=== PATIENT | female | born 1980 | race Caucasian/White ===

== ENCOUNTER 2019-04-05 12:12 | Emergency (ER) | payer OTHER, SELFPAY ==
[2019-04-05 12:36] VITALS: BP 135/65; PULSE 110; RESP 20; TEMP 36.8; O2SAT 99; BMI 26.6
[2019-04-05 12:41] VITALS: BP 135/65; PULSE 108; RESP 17; TEMP 36.8; O2SAT 98
[2019-04-05 13:00] VITALS: BP 118/98; PULSE 101; PULSE 107; RESP 16; RESP 18; O2SAT 100; O2SAT 99
--- NOTE | 2019-04-05 13:01 | PC.NURSE ---
Attempt x1 for IV, unsuccessful. Warm blankets to arms
--- NOTE | 2019-04-05 13:23 | ED.GIBLEED ---
HPI - GI Bleed <Francy Forrest, HOUSEKEEPER/LAUNDRY ASSISTANT-BC - Last Filed: 04/05/19 16:28> General Chief complaint: GI Bleed Stated complaint: blood in stool, x2+ days,abd pain Time Seen by Provider: 04/05/19 12:58 Source: patient and family Mode of arrival: ambulatory Limitations: no limitations History of Present Illness HPI Narrative: The patient is a 38 year female current smoker who presents with a chief complaint of bright red blood per rectum as well as some abdominal pain. She states that this is a recurrent issue for her. She states in 2014 she was in this emergency department and was found to have colitis. She was placed on medications, which she states helps it. She did follow up with Gastroenterology as well as her primary care provider several times. She states she had a colonoscopy. She states she was scoped multiple times. She found gastroenterology not very helpful. She states that this current episode of abdominal pain with bright red blood per rectum has been going on for 5 days. She denies any black tarry stools. She denies any chest pain shortness of breath fever nausea vomiting or diarrhea. She states her belly pain is on her left side. She denies any dysuria urgency or frequency. She denies any flank pain. She states she has not seen Gastroenterology in 2 years at least. She has not let her primary care provider know about this episode. Related Data Home Medications Medication Instructions Recorded Confirmed acetaminophen 500 mg tablet 1,000 mg PO Q6H PRN 04/04/18 04/06/19 amitriptyline 50 - 75 mg PO BEDTIME PRN 04/05/19 04/06/19 loperamide-simethicone [Imodium 1 tab PO PRN PRN 04/05/19 04/06/19 Multi-Symptom Relief] ranitidine HCl 150 mg PO DAILY PRN 04/05/19 04/06/19 sumatriptan succinate 50 mg PO PRN PRN 04/05/19 04/06/19 Previous Rx's Medication Instructions Recorded ciprofloxacin HCl 500 mg PO BID #14 tab 04/05/19 metronidazole 500 mg PO TID #30 tab 04/05/19 prednisone 50 mg PO DAILY #5 tab 04/05/19 norgestimate 0.18 mg/0.215 mg/0.25 1 tab PO DAILY #84 tab 04/06/19 mg-ethinyl estradiol 25 mcg tablet Allergies Allergy/AdvReac Type Severity Reaction Status Date / Time amoxicillin [AMOXICILLIN] Allergy Mild RASH, HIVES Verified 04/06/19 11:28 Penicillins [PENICILLINS] Allergy Mild RASH, HIVES Verified 04/06/19 11:28 venlafaxine [VENLAFAXINE] AdvReac Severe PALPITATION Verified 04/06/19 11:28 S sertraline [SERTRALINE] AdvReac Intermediate HEART Verified 04/06/19 11:28 PALPITATIONS trazodone [TRAZODONE] AdvReac Intermediate CHEST HEAVY Verified 04/06/19 11:28 Review of Systems <NICHOLE Messina - Last Filed: 04/05/19 16:28> Review of Systems GENERAL: Denies chills, fatigue, malaise, fever, sweats. HEENT: Denies sinus pain, ear pain, sore throat, difficulty swallowing, dizziness. RESPIRATORY: Denies dyspnea, cough, wheezing, hemoptysis, sputum. CARDIOVASCULAR: Denies chest pain, palpitations, orthopnea, edema, GASTROINTESTINAL: See HPI : Denies dysuria, frequency, incontinence, hematuria, urinary retention. MUSCULOSKELETAL: denies weakness, joint pain, or bony pain SKIN: Denies rash, skin lesions, or other NEUROLOGIC: Denies weakness, headache, numbness, change in speech, confusion, seizures, incoordination. PSYCHIATRIC: No concerning psychosocial issues. 12 point review of systems is negative except for those stated above PFSH <NICHOLE Messina - Last Filed: 04/05/19 16:28> Medical History Abnormal Pap smear of cervix (Chronic ~1995) Anxiety (Chronic ~2001) Depression (Chronic ~2001) Generalized headaches (Chronic Unknown) HPV (human papilloma virus) infection (Chronic 2011) Chickenpox (Resolved ~1981) Diverticula of colon (Resolved 07/2017) Nephrolithiasis (Resolved Unknown) Surgical History History of lithotripsy Family History Father Age: 61 Hyperlipidemia Hypertension Grandmother Diabetes mellitus Mother Age: 60 Controlled type 2 diabetes mellitus without complication, unspecified usp insulin use status Diabetes mellitus Hypertension Grandfather Stroke Grandmother Diabetes mellitus Heart disease Stroke Social History Smoking Status: Current every day smoker Family History Father Age: 61 Hyperlipidemia Hypertension Grandmother Diabetes mellitus Mother Age: 60 Controlled type 2 diabetes mellitus without complication, unspecified usp insulin use status Diabetes mellitus Hypertension Grandfather Stroke Grandmother Diabetes mellitus Heart disease Stroke Social History Smoking Status: Current every day smoker Exam <NICHOLE Messina - Last Filed: 04/05/19 16:28> Narrative Exam Narrative: GENERAL: This is a well-nourished, well-developed patient, lying on stretcher in no acute distress HEAD: Atraumatic. Normocephalic. No temporal or scalp tenderness. EYES: Pupils equal round and reactive. Extraocular motions intact. No scleral icterus. No injection or drainage. CARDIOVASCULAR: Regular rate and rhythm without murmurs, gallops, or rubs. RESPIRATORY: Clear to auscultation. Breath sounds equal bilaterally. No wheezes, rales, or rhonchi. No cough. No increased respiratory effort. No accessory muscle use. GASTROINTESTINAL: Abdomen soft, nondistended. No hepato-splenomegaly, or palpable masses. Active bowel sounds all 4 quadrants. Generalized pain to palpation left upper and lower abdomen. No guarding. Negative Garcia sign. EXTREMITIES: No clubbing, cyanosis, or edema. No joint tenderness, effusion, or edema noted. BACK: Nontender without deformity or crepitance. No flank tenderness. NEURO: AOx3. SKIN: No rash or erythema. The patient refused rectal exam. Initial Vital Signs Initial Vital Signs: Vital Signs Temperature 98.2 F 04/05/19 12:36 Pulse Rate 110 H 04/05/19 12:36 Respiratory Rate 20 04/05/19 12:36 Blood Pressure 135/65 04/05/19 12:36 Pulse Oximetry 99 04/05/19 12:36 Const General: cooperative and well developed Nutritional Appearance: well nourished Orientation: alert, awake, oriented x3 and not confused <Vale Osuna MD - Last Filed: 04/11/19 07:24> Initial Vital Signs Initial Vital Signs: Vital Signs Temperature 98.2 F 04/05/19 12:36 Pulse Rate 110 H 04/05/19 12:36 Respiratory Rate 20 04/05/19 12:36 Blood Pressure 135/65 04/05/19 12:36 Pulse Oximetry 99 04/05/19 12:36 Course <ROXANNE Messina - Last Filed: 04/05/19 16:28> Orders Ordered: Discontinued Medications Diphenhydramine HCl (Benadryl) 25 mg IV NOW ONE Stop: 04/05/19 13:52 Last Admin: 04/05/19 14:10 Dose: 25 mg Sodium Chloride (Normal Saline 0.9%) 1,000 mls @ 1,000 mls/hr IV BOLUS ONE Stop: 04/05/19 15:01 Last Infusion: 04/05/19 15:12 Dose: 0 mls/hr Admin: 04/05/19 14:10 Dose: 1,000 mls/hr Methylprednisolone (Solu-Medrol 125 Mg Vial) 125 mg IV NOW ONE Stop: 04/05/19 13:52 Last Admin: 04/05/19 14:10 Dose: 125 mg Vital Signs - 8 hr 04/05/19 12:36 04/05/19 12:41 04/05/19 13:00 Temperature 98.2 F 98.2 F Pulse Rate 110 H 108 H 101 H Respiratory Rate 20 17 16 Blood Pressure 135/65 Blood Pressure [Left Arm] 135/65 118/98 H Pulse Oximetry 99 98 99 04/05/19 14:00 04/05/19 15:00 04/05/19 15:56 Temperature Pulse Rate 99 H 89 89 Respiratory Rate 16 16 20 Blood Pressure 98/56 L Blood Pressure [Left Arm] 121/65 118/60 Pulse Oximetry 94 99 98 <Vale Osuna MD - Last Filed: 04/11/19 07:24> Orders Ordered: Discontinued Medications Diphenhydramine HCl (Benadryl) 25 mg IV NOW ONE Stop: 04/05/19 13:52 Last Admin: 04/05/19 14:10 Dose: 25 mg Sodium Chloride (Normal Saline 0.9%) 1,000 mls @ 1,000 mls/hr IV BOLUS ONE Stop: 04/05/19 15:01 Last Infusion: 04/05/19 15:12 Dose: 0 mls/hr Admin: 04/05/19 14:10 Dose: 1,000 mls/hr Methylprednisolone (Solu-Medrol 125 Mg Vial) 125 mg IV NOW ONE Stop: 04/05/19 13:52 Last Admin: 04/05/19 14:10 Dose: 125 mg Vital Signs - 8 hr 04/05/19 12:36 04/05/19 12:41 04/05/19 13:00 Temperature 98.2 F 98.2 F Pulse Rate 110 H 108 H 101 H Respiratory Rate 20 17 16 Blood Pressure 135/65 Blood Pressure [Left Arm] 135/65 118/98 H Pulse Oximetry 99 98 99 04/05/19 14:00 04/05/19 15:00 04/05/19 15:56 Temperature Pulse Rate 99 H 89 89 Respiratory Rate 16 16 20 Blood Pressure 98/56 L Blood Pressure [Left Arm] 121/65 118/60 Pulse Oximetry 94 99 98 MDM - GI Bleed <Francy Forrest, HOUSEKEEPER/LAUNDRY ASSISTANT- - Last Filed: 04/05/19 16:28> Lab Data Result diagrams: 04/05/19 13:30 04/05/19 13:30 Lab Results 04/05/19 04/05/19 04/05/19 Range/Units 13:30 13:30 14:00 WBC 16.6 H (4.5-11.0) X10^3/uL RBC 4.43 (4.0-5.2) X10^6/uL Hgb 12.3 (12.0-16.0) g/dL Hct 36.8 (36-46) % MCV 83.0 (80-100) fL MCH 27.7 (26-34) PG MCHC 33.3 (30-36) % RDW 14.1 (11.6-14.8) % Plt Count 425 H (150-400) X10^3/uL Neut % (Auto) 79.2 H (50-75) % Lymph % (Auto) 14.8 L (25-40) % [place] % (Auto) 4.7 (3-14) % Eos % (Auto) 0.6 L (2-4) % Baso % (Auto) 0.7 (0-2) % Neut # (Auto) 75991 H (0606-0884) /uL Lymph # (Auto) 2500 (7839-7001) /uL [place] # (Auto) 800 (0-900) /uL Eos # (Auto) 100 (0-450) /uL Baso # (Auto) 100 (0-100) /uL PT 10.6 (10.1-12.7) SECONDS INR 0.9 (0.9-1.3) APTT 27 (26.4-36.2) SECONDS Sodium 139 (137-145) mmol/L Potassium 4.1 (3.4-5.1) mmol/L Chloride 109 H (98-107) mmol/L Carbon Dioxide 20 L (22-32) mmol/L BUN 6 L (7-17) mg/dL Creatinine 0.50 L (0.52-1.04) mg/dL Estimated GFR > 60.0 (>60) mL/min BUN/Creatinine Ratio 12.0 (6-22) Glucose 87 (70-100) mg/dL Calcium 8.7 (8.4-10.2) mg/dL Total Bilirubin 0.3 (0.2-1.3) mg/dL AST 22 (14-36) IU/L ALT 15 (9-52) IU/L Alkaline Phosphatase 120 (38-126) U/L Total Protein 7.4 (6.3-8.2) g/dL Albumin 3.9 (3.5-5.0) g/dL Globulin 3.5 (1.7-4.1) g/dL Albumin/Globulin Ratio 1.1 (1.0-2.8) Lipase 42 (23-300) U/L Blood Type Antibody Screen 04/05/19 Range/Units 14:00 WBC (4.5-11.0) X10^3/uL RBC (4.0-5.2) X10^6/uL Hgb (12.0-16.0) g/dL Hct (36-46) % MCV (80-100) fL MCH (26-34) PG MCHC (30-36) % RDW (11.6-14.8) % Plt Count (150-400) X10^3/uL Neut % (Auto) (50-75) % Lymph % (Auto) (25-40) % [place] % (Auto) (3-14) % Eos % (Auto) (2-4) % Baso % (Auto) (0-2) % Neut # (Auto) (5726-5346) /uL Lymph # (Auto) (9086-5623) /uL [place] # (Auto) (0-900) /uL Eos # (Auto) (0-450) /uL Baso # (Auto) (0-100) /uL PT (10.1-12.7) SECONDS INR (0.9-1.3) APTT (26.4-36.2) SECONDS Sodium (137-145) mmol/L Potassium (3.4-5.1) mmol/L Chloride (98-107) mmol/L Carbon Dioxide (22-32) mmol/L BUN (7-17) mg/dL Creatinine (0.52-1.04) mg/dL Estimated GFR (>60) mL/min BUN/Creatinine Ratio (6-22) Glucose (70-100) mg/dL Calcium (8.4-10.2) mg/dL Total Bilirubin (0.2-1.3) mg/dL AST (14-36) IU/L ALT (9-52) IU/L Alkaline Phosphatase (38-126) U/L Total Protein (6.3-8.2) g/dL Albumin (3.5-5.0) g/dL Globulin (1.7-4.1) g/dL Albumin/Globulin Ratio (1.0-2.8) Lipase (23-300) U/L Blood Type O Positive Antibody Screen Negative Point of Care Testing Test Results Negative Urine Dip Bedside Urine Glucose Negative Bedside Urine Bilirubin - Negative Bedside Urine Ketone - Negative Urine Specific [place] 1.030 Bedside Urine Occult Blood + Bedside Urine pH 6.0 Bedside Urine Protein +/- 15 Bedside Urine Urobilinogen - Negative Bedside Urine Nitrite - Negative Bedside Urine Leukocytes ++ [address] scan - abdomen: Radiologist's impression: Dasia Delatorre 38 F [address] [address] [address] Scan Report Signed Patient: NandiniDasia KMR#: [id number] : 1980Acct:[id number] Age/Sex: 38 / FDate of Service: 04/05/19 Loc: ED Accession Number: [id number] Procedure: CT abdomen pelvis w con Ordering Provider: Francy Forrest PROCEDURE: CT ABDOMEN PELVIS W CON INDICATIONS: abd pain, rectal bleeding, elevated wbc TECHNIQUE: After the administration of intravenous contrast, 5 mm thick sections acquired from the diaphragm to the symphysis. 5 mm coronal and sagittal reformats were acquired. For radiation dose reduction, the following was used: automated exposure control, adjustment of mA and/or kV according to patient size. COMPARISON: [facility], CT, ABDOMEN/PELVIS WITH CONTRAST, 07/31/2015, 0:13. FINDINGS: Image quality: Excellent. ABDOMEN: Lung bases: No acute consolidation. Scattered subsegmental atelectasis and/or scarring. Heart size is normal. Solid organs: Focal enhancement within the central liver image 19 series 2 measuring 1.8 x 2.6 cm unchanged since 07/31/15 presumably hemangioma versus focal fatty sparing. Gallbladder contains multiple gallstones. No definite gallbladder wall thickening or pericholecystic inflammatory changes. Biliary system is non dilated. Pancreas enhances normally. 1 cm hypodense lesion in the spleen on image 10 is indeterminate although new since the prior study. No adrenal nodules. Kidneys demonstrate normal size and enhancement, without hydronephrosis. Peritoneum and bowel: There is suggestion of long segment diffuse transverse and descending colonic mural thickening. No free fluid or air. Appendix is not clearly identified however no suspicious pericecal inflammatory changes are identified Rectum is grossly unremarkable There are numerous colonic diverticula present although no definite focal implant diverticulitis noted. Nodes and vessels: No retroperitoneal or mesenteric adenopathy by size criteria. Aorta and inferior vena cava are normal in size. Miscellaneous: No ventral hernias. PELVIS: Genitourinary: The bladder is partially collapsed otherwise unremarkable Miscellaneous: No inguinal hernias or adenopathy. Bones: No suspicious bony lesions. No vertebral body compression fractures. IMPRESSION: Mild diffuse colonic wall thickening primarily involving the transverse and descending colon suggesting low grade infectious/inflammatory pancolitis. Please correlate with clinical and laboratory data. Cholelithiasis. However, no other CT evidence of acute cholecystitis. Please correlate clinically and with LFTs. Colonic diverticulosis. No definite focal inflamed diverticulitis identified. Additional chronic and incidental findings as above. Dictated by: Low Robison M.D. on 04/05/2019 at 14:51 Approved by: Low Robison M.D. on 04/05/2019 at 14:59 [facility] Narrative Medical decision making narrative: The patient is a 38-year-old female who presents with complaints of diffuse abdominal tenderness and bright red blood per rectum. Given her complaint combined with her elevated WBC I obtained a CT scan. Her CT scan indicates colitis. Given that her last episode improved with Cipro and Flagyl, I placed her on this again. I also gave her a burst of prednisone. The patient declined a rectal exam in the emergency department after she was unable to produce stool. I encouraged her to follow up with primary care provider, and stated she might need to follow up with Gastroenterology. I discussed at length return precautions including dizziness, lightheadedness, severe hemorrhage or any acute concerns. Patient states understanding. We did discuss the incidental finding of a possible liver hemangioma on her pelvis CT. I encouraged her to follow up with primary care provider regarding this. I did discuss at length the black box warning associated with Cipro regarding tendinopathy. Also discussed not drinking on Flagyl. Encouraged simple diet. Patient was hemodynamically stable and afebrile throughout her stay in the emergency department. Discussed at length follow-up care as well as return precautions. Patient stated understanding of all the above and was able to ambulate outside the department for discharge. <Vale Osuna MD - Last Filed: 04/11/19 07:24> Lab Data Lab Results 04/05/19 04/05/19 04/05/19 Range/Units 13:30 13:30 14:00 WBC 16.6 H (4.5-11.0) X10^3/uL RBC 4.43 (4.0-5.2) X10^6/uL Hgb 12.3 (12.0-16.0) g/dL Hct 36.8 (36-46) % MCV 83.0 (80-100) fL MCH 27.7 (26-34) PG MCHC 33.3 (30-36) % RDW 14.1 (11.6-14.8) % Plt Count 425 H (150-400) X10^3/uL Neut % (Auto) 79.2 H (50-75) % Lymph % (Auto) 14.8 L (25-40) % [place] % (Auto) 4.7 (3-14) % Eos % (Auto) 0.6 L (2-4) % Baso % (Auto) 0.7 (0-2) % Neut # (Auto) 71915 H (0739-7707) /uL Lymph # (Auto) 2500 (2430-4005) /uL [place] # (Auto) 800 (0-900) /uL Eos # (Auto) 100 (0-450) /uL Baso # (Auto) 100 (0-100) /uL PT 10.6 (10.1-12.7) SECONDS INR 0.9 (0.9-1.3) APTT 27 (26.4-36.2) SECONDS Sodium 139 (137-145) mmol/L Potassium 4.1 (3.4-5.1) mmol/L Chloride 109 H (98-107) mmol/L Carbon Dioxide 20 L (22-32) mmol/L BUN 6 L (7-17) mg/dL Creatinine 0.50 L (0.52-1.04) mg/dL Estimated GFR > 60.0 (>60) mL/min BUN/Creatinine Ratio 12.0 (6-22) Glucose 87 (70-100) mg/dL Calcium 8.7 (8.4-10.2) mg/dL Total Bilirubin 0.3 (0.2-1.3) mg/dL AST 22 (14-36) IU/L ALT 15 (9-52) IU/L Alkaline Phosphatase 120 (38-126) U/L Total Protein 7.4 (6.3-8.2) g/dL Albumin 3.9 (3.5-5.0) g/dL Globulin 3.5 (1.7-4.1) g/dL Albumin/Globulin Ratio 1.1 (1.0-2.8) Lipase 42 (23-300) U/L Blood Type Antibody Screen 04/05/19 Range/Units 14:00 WBC (4.5-11.0) X10^3/uL RBC (4.0-5.2) X10^6/uL Hgb (12.0-16.0) g/dL Hct (36-46) % MCV (80-100) fL MCH (26-34) PG MCHC (30-36) % RDW (11.6-14.8) % Plt Count (150-400) X10^3/uL Neut % (Auto) (50-75) % Lymph % (Auto) (25-40) % [place] % (Auto) (3-14) % Eos % (Auto) (2-4) % Baso % (Auto) (0-2) % Neut # (Auto) (1592-7769) /uL Lymph # (Auto) (1610-4701) /uL [place] # (Auto) (0-900) /uL Eos # (Auto) (0-450) /uL Baso # (Auto) (0-100) /uL PT (10.1-12.7) SECONDS INR (0.9-1.3) APTT (26.4-36.2) SECONDS Sodium (137-145) mmol/L Potassium (3.4-5.1) mmol/L Chloride (98-107) mmol/L Carbon Dioxide (22-32) mmol/L BUN (7-17) mg/dL Creatinine (0.52-1.04) mg/dL Estimated GFR (>60) mL/min BUN/Creatinine Ratio (6-22) Glucose (70-100) mg/dL Calcium (8.4-10.2) mg/dL Total Bilirubin (0.2-1.3) mg/dL AST (14-36) IU/L ALT (9-52) IU/L Alkaline Phosphatase (38-126) U/L Total Protein (6.3-8.2) g/dL Albumin (3.5-5.0) g/dL Globulin (1.7-4.1) g/dL Albumin/Globulin Ratio (1.0-2.8) Lipase (23-300) U/L Blood Type O Positive Antibody Screen Negative Point of Care Testing Test Results Negative Urine Dip Bedside Urine Glucose Negative Bedside Urine Bilirubin - Negative Bedside Urine Ketone - Negative Urine Specific [place] 1.030 Bedside Urine Occult Blood + Bedside Urine pH 6.0 Bedside Urine Protein +/- 15 Bedside Urine Urobilinogen - Negative Bedside Urine Nitrite - Negative Bedside Urine Leukocytes ++ 125 Esterase Discharge Plan Departure Patient Disposition: Home Clinical Impression: Colitis Discharge Date/Time: 04/05/19 15:56 Interventions: ED Discharge Assessment Last Done: 04/05/19 15:56 Instructions: DI for Rectal Bleeding, DI for Colitis Activity Restrictions/Additional Instructions: For your CT scan shows evidence of colitis. Let's use prednisone and Cipro and Flagyl as this has worked for him in the past. Please follow up with primary care provider soon as possible. You may need to follow up with GI as well. Please come back to the emergency department for any acute concerns such as lightheadedness dizziness. Please rest and push fluids. I recommend a simple diet. You can start the prednisone tomorrow since you already had the IV steroid today. Come back to the emergency department if he need to. Please call your primary care provider for follow-up as soon as possible. Do not drink alcohol with Flagyl. Prescriptions: New ciprofloxacin HCl 500 mg tablet 500 mg PO BID Qty: 14 RF: 0 prednisone 50 mg tablet 50 mg PO DAILY Qty: 5 RF: 0 metronidazole 500 mg tablet 500 mg PO TID Qty: 30 RF: 0 No Action acetaminophen [Tylenol Extra Strength] 500 mg tablet 1,000 mg PO Q6H PRN (Reason: pain) RF: 0 norgestimate-ethinyl estradiol 0.18/0.215/0.25 mg-25 mcg tablet 1 tab PO DAILY Qty: 84 RF: 3 ranitidine HCl 150 mg Tablet 150 mg PO DAILY PRN (Reason: Acid Reflux) RF: 0 Imodium Multi-Symptom Relief 2-125 mg Tablet 1 tab PO PRN PRN (Reason: stomach distress) RF: 0 sumatriptan succinate 50 mg tablet 50 mg PO PRN PRN (Reason: Migraine Headache) RF: 0 amitriptyline 50 mg tablet 50 - 75 mg PO BEDTIME PRN (Reason: pain) RF: 0 Referrals: Connie Garcia PA-C [Primary Care Provider] - Stand Alone Forms: Work Release Note
[2019-04-05 13:36] LABS: Add Manual Diff / Slide Review NO; Basophils Absolute Auto 100 /uL (0-100); Basophils Percent Auto 0.7 % (0-2); Eosinophils Absolute Auto 100 /uL (0-450); Eosinophils Percent Auto 0.6 % (2-4); Hematocrit 36.8 % (36-46); Hemoglobin 12.3 g/dL (12.0-16.0); Lymphocytes Absolute Auto 2500 /uL (1100-4500); Lymphocytes Percent Auto 14.8 % (25-40); Mean Corpuscular HGB Conc 33.3 % (30-36); Mean Corpuscular Hemoglobin 27.7 PG (26-34); Monocytes Absolute Auto 800 /uL (0-900); Monocytes Percent Auto 4.7 % (3-14); Neutrophils Absolute Auto 13200 /uL (1500-7000); Neutrophils Percent Auto 79.2 % (50-75); Platelet Count 425 X10^3/uL (150-400); Red Blood Cell Count 4.43 X10^6/uL (4.0-5.2); Red Cell Distribution Width 14.1 % (11.6-14.8); White Blood Cell Count 16.6 X10^3/uL (4.5-11.0)
[2019-04-05 13:51] LABS: Alanine Aminotransferase 15 IU/L (9-52); Albumin 3.9 g/dL (3.5-5.0); Albumin Globulin Ratio 1.1 (1.0-2.8); Alkaline Phosphatase 120 U/L (38-126); Aspartate Aminotransferase 22 IU/L (14-36); Bilirubin Total 0.3 mg/dL (0.2-1.3); Blood Urea Nitrogen 6 mg/dL (7-17); Calcium 8.7 mg/dL (8.4-10.2); Carbon Dioxide 20 mmol/L (22-32); Chloride 109 mmol/L (98-107); Estimated Glomerular Filt Rate > 60.0 mL/min (>60); Globulin 3.5 g/dL (1.7-4.1); Glucose 87 mg/dL (70-100); HEMOLYSIS 21 (0-50); Lipase 42 U/L (23-300); Potassium 4.1 mmol/L (3.4-5.1); Sodium 139 mmol/L (137-145); Total Protein 7.4 g/dL (6.3-8.2)
[2019-04-05 14:00] VITALS: BP 121/65; PULSE 99; RESP 16; O2SAT 94
[2019-04-05] MEDS: SODIUM CHLORIDE 0.9% 1,000 ML 1000 ML IV (14:10)
[2019-04-05] MEDS: methylPREDNISolone 125 MG/2 ML VIAL IV (14:10)
[2019-04-05] MEDS: diphenhydrAMINE 50 MG/ML VIAL 25 MG IV (14:10)
[2019-04-05 14:15] LABS: INR 0.9 (0.9-1.3); Prothrombin Time 10.6 SECONDS (10.1-12.7)
[2019-04-05 14:18] LABS: PTT Partial Thromboplastin Tim 27 SECONDS (26.4-36.2)
--- NOTE | 2019-04-05 14:38 | DI.CT.S_ITS ---
PROCEDURE: CT ABDOMEN PELVIS W CON INDICATIONS: abd pain, rectal bleeding, elevated wbc TECHNIQUE: After the administration of intravenous contrast, 5 mm thick sections acquired from the diaphragm to the symphysis. 5 mm coronal and sagittal reformats were acquired. For radiation dose reduction, the following was used: automated exposure control, adjustment of mA and/or kV according to patient size. COMPARISON: [facility], CT, ABDOMEN/PELVIS WITH CONTRAST, 07/31/2015, 0:13. FINDINGS: Image quality: Excellent. ABDOMEN: Lung bases: No acute consolidation. Scattered subsegmental atelectasis and/or scarring. Heart size is normal. Solid organs: Focal enhancement within the central liver image 19 series 2 measuring 1.8 x 2.6 cm unchanged since 07/31/15 presumably hemangioma versus focal fatty sparing. Gallbladder contains multiple gallstones. No definite gallbladder wall thickening or pericholecystic inflammatory changes. Biliary system is non dilated. Pancreas enhances normally. 1 cm hypodense lesion in the spleen on image 10 is indeterminate although new since the prior study. No adrenal nodules. Kidneys demonstrate normal size and enhancement, without hydronephrosis. Peritoneum and bowel: There is suggestion of long segment diffuse transverse and descending colonic mural thickening. No free fluid or air. Appendix is not clearly identified however no suspicious pericecal inflammatory changes are identified Rectum is grossly unremarkable There are numerous colonic diverticula present although no definite focal implant diverticulitis noted. Nodes and vessels: No retroperitoneal or mesenteric adenopathy by size criteria. Aorta and inferior vena cava are normal in size. Miscellaneous: No ventral hernias. PELVIS: Genitourinary: The bladder is partially collapsed otherwise unremarkable Miscellaneous: No inguinal hernias or adenopathy. Bones: No suspicious bony lesions. No vertebral body compression fractures. IMPRESSION: Mild diffuse colonic wall thickening primarily involving the transverse and descending colon suggesting low grade infectious/inflammatory pancolitis. Please correlate with clinical and laboratory data. Cholelithiasis. However, no other CT evidence of acute cholecystitis. Please correlate clinically and with LFTs. Colonic diverticulosis. No definite focal inflamed diverticulitis identified. Additional chronic and incidental findings as above. Dictated by: Low Robison M.D. on 04/05/2019 at 14:51 Approved by: Low Robison M.D. on 04/05/2019 at 14:59
[2019-04-05 15:00] VITALS: BP 118/60; PULSE 89; RESP 16; O2SAT 99
[2019-04-05 15:56] VITALS: BP 98/56; PULSE 89; RESP 20; O2SAT 98
--- NOTE | 2019-04-05 16:28 | ED_ITS ---
HPI - GI Bleed <Francy Forrest, [employer] SAL[employer] CONSULTANT-BC - Last Filed: 04/05/19 16:28> General Chief complaint: GI Bleed Stated complaint: blood in stool, x2+ days,abd pain Time Seen by Provider: 04/05/19 12:58 Source: patient and family Mode of arrival: ambulatory Limitations: no limitations History of Present Illness HPI Narrative: The patient is a 38 year female current smoker who presents with a chief complaint of bright red blood per rectum as well as some abdominal pain. She states that this is a recurrent issue for her. She states in 2014 she was in this emergency department and was found to have colitis. She was placed on medications, which she states helps it. She did follow up with Gastroenterology as well as her primary care provider several times. She states she had a colonoscopy. She states she was scoped multiple times. She found gastroenterology not very helpful. She states that this current episode of abdominal pain with bright red blood per rectum has been going on for 5 days. She denies any black tarry stools. She denies any chest pain shortness of breath fever nausea vomiting or diarrhea. She states her belly pain is on her left side. She denies any dysuria urgency or frequency. She denies any flank pain. She states she has not seen Gastroenterology in 2 years at least. She has not let her primary care provider know about this episode. Related Data Home Medications Medication Instructions Recorded Confirmed acetaminophen 500 mg tablet 1,000 mg PO Q6H PRN 04/04/18 04/06/19 amitriptyline 50 - 75 mg PO BEDTIME PRN 04/05/19 04/06/19 loperamide-simethicone [Imodium 1 tab PO PRN PRN 04/05/19 04/06/19 Multi-Symptom Relief] ranitidine HCl 150 mg PO DAILY PRN 04/05/19 04/06/19 sumatriptan succinate 50 mg PO PRN PRN 04/05/19 04/06/19 Previous Rx's Medication Instructions Recorded ciprofloxacin HCl 500 mg PO BID #14 tab 04/05/19 metronidazole 500 mg PO TID #30 tab 04/05/19 prednisone 50 mg PO DAILY #5 tab 04/05/19 norgestimate 0.18 mg/0.215 mg/0.25 1 tab PO DAILY #84 tab 04/06/19 mg-ethinyl estradiol 25 mcg tablet Allergies Allergy/AdvReac Type Severity Reaction Status Date / Time amoxicillin [AMOXICILLIN] Allergy Mild RASH, HIVES Verified 04/06/19 11:28 Penicillins [PENICILLINS] Allergy Mild RASH, HIVES Verified 04/06/19 11:28 venlafaxine [VENLAFAXINE] AdvReac Severe PALPITATION Verified 04/06/19 11:28 S sertraline [SERTRALINE] AdvReac Intermediate HEART Verified 04/06/19 11:28 PALPITATIONS trazodone [TRAZODONE] AdvReac Intermediate CHEST HEAVY Verified 04/06/19 11:28 Review of Systems <NICHOLE Messina - Last Filed: 04/05/19 16:28> Review of Systems GENERAL: Denies chills, fatigue, malaise, fever, sweats. HEENT: Denies sinus pain, ear pain, sore throat, difficulty swallowing, dizziness. RESPIRATORY: Denies dyspnea, cough, wheezing, hemoptysis, sputum. CARDIOVASCULAR: Denies chest pain, palpitations, orthopnea, edema, GASTROINTESTINAL: See HPI : Denies dysuria, frequency, incontinence, hematuria, urinary retention. MUSCULOSKELETAL: denies weakness, joint pain, or bony pain SKIN: Denies rash, skin lesions, or other NEUROLOGIC: Denies weakness, headache, numbness, change in speech, confusion, seizures, incoordination. PSYCHIATRIC: No concerning psychosocial issues. 12 point review of systems is negative except for those stated above PFSH <NICHOLE Messina - Last Filed: 04/05/19 16:28> Medical History Abnormal Pap smear of cervix (Chronic ~1995) Anxiety (Chronic ~2001) Depression (Chronic ~2001) Generalized headaches (Chronic Unknown) HPV (human papilloma virus) infection (Chronic 2011) Chickenpox (Resolved ~1981) Diverticula of colon (Resolved 07/2017) Nephrolithiasis (Resolved Unknown) Surgical History History of lithotripsy Family History Father Age: 61 Hyperlipidemia Hypertension Grandmother Diabetes mellitus Mother Age: 60 Controlled type 2 diabetes mellitus without complication, unspecified correction insulin use status Diabetes mellitus Hypertension Grandfather Stroke Grandmother Diabetes mellitus Heart disease Stroke Social History Smoking Status: Current every day smoker Family History Father Age: 61 Hyperlipidemia Hypertension Grandmother Diabetes mellitus Mother Age: 60 Controlled type 2 diabetes mellitus without complication, unspecified correction insulin use status Diabetes mellitus Hypertension Grandfather Stroke Grandmother Diabetes mellitus Heart disease Stroke Social History Smoking Status: Current every day smoker Exam <NICHOLE Messina - Last Filed: 04/05/19 16:28> Narrative Exam Narrative: GENERAL: This is a well-nourished, well-developed patient, lying on stretcher in no acute distress HEAD: Atraumatic. Normocephalic. No temporal or scalp tenderness. EYES: Pupils equal round and reactive. Extraocular motions intact. No scleral icterus. No injection or drainage. CARDIOVASCULAR: Regular rate and rhythm without murmurs, gallops, or rubs. RESPIRATORY: Clear to auscultation. Breath sounds equal bilaterally. No wheezes, rales, or rhonchi. No cough. No increased respiratory effort. No accessory muscle use. GASTROINTESTINAL: Abdomen soft, nondistended. No hepato-splenomegaly, or palpable masses. Active bowel sounds all 4 quadrants. Generalized pain to palpation left upper and lower abdomen. No guarding. Negative Garcia sign. EXTREMITIES: No clubbing, cyanosis, or edema. No joint tenderness, effusion, or edema noted. BACK: Nontender without deformity or crepitance. No flank tenderness. NEURO: AOx3. SKIN: No rash or erythema. The patient refused rectal exam. Initial Vital Signs Initial Vital Signs: Vital Signs Temperature 98.2 F 04/05/19 12:36 Pulse Rate 110 H 04/05/19 12:36 Respiratory Rate 20 04/05/19 12:36 Blood Pressure 135/65 04/05/19 12:36 Pulse Oximetry 99 04/05/19 12:36 Const General: cooperative and well developed Nutritional Appearance: well nourished Orientation: alert, awake, oriented x3 and not confused <Vale Osuna MD - Last Filed: 04/11/19 07:24> Initial Vital Signs Initial Vital Signs: Vital Signs Temperature 98.2 F 04/05/19 12:36 Pulse Rate 110 H 04/05/19 12:36 Respiratory Rate 20 04/05/19 12:36 Blood Pressure 135/65 04/05/19 12:36 Pulse Oximetry 99 04/05/19 12:36 Course <ROXANNE Messina - Last Filed: 04/05/19 16:28> Orders Ordered: Discontinued Medications Diphenhydramine HCl (Benadryl) 25 mg IV NOW ONE Stop: 04/05/19 13:52 Last Admin: 04/05/19 14:10 Dose: 25 mg Sodium Chloride (Normal Saline 0.9%) 1,000 mls @ 1,000 mls/hr IV BOLUS ONE Stop: 04/05/19 15:01 Last Infusion: 04/05/19 15:12 Dose: 0 mls/hr Admin: 04/05/19 14:10 Dose: 1,000 mls/hr Methylprednisolone (Solu-Medrol 125 Mg Vial) 125 mg IV NOW ONE Stop: 04/05/19 13:52 Last Admin: 04/05/19 14:10 Dose: 125 mg Vital Signs - 8 hr 04/05/19 12:36 04/05/19 12:41 04/05/19 13:00 Temperature 98.2 F 98.2 F Pulse Rate 110 H 108 H 101 H Respiratory Rate 20 17 16 Blood Pressure 135/65 Blood Pressure [Left Arm] 135/65 118/98 H Pulse Oximetry 99 98 99 04/05/19 14:00 04/05/19 15:00 04/05/19 15:56 Temperature Pulse Rate 99 H 89 89 Respiratory Rate 16 16 20 Blood Pressure 98/56 L Blood Pressure [Left Arm] 121/65 118/60 Pulse Oximetry 94 99 98 <Vale Osuna MD - Last Filed: 04/11/19 07:24> Orders Ordered: Discontinued Medications Diphenhydramine HCl (Benadryl) 25 mg IV NOW ONE Stop: 04/05/19 13:52 Last Admin: 04/05/19 14:10 Dose: 25 mg Sodium Chloride (Normal Saline 0.9%) 1,000 mls @ 1,000 mls/hr IV BOLUS ONE Stop: 04/05/19 15:01 Last Infusion: 04/05/19 15:12 Dose: 0 mls/hr Admin: 04/05/19 14:10 Dose: 1,000 mls/hr Methylprednisolone (Solu-Medrol 125 Mg Vial) 125 mg IV NOW ONE Stop: 04/05/19 13:52 Last Admin: 04/05/19 14:10 Dose: 125 mg Vital Signs - 8 hr 04/05/19 12:36 04/05/19 12:41 04/05/19 13:00 Temperature 98.2 F 98.2 F Pulse Rate 110 H 108 H 101 H Respiratory Rate 20 17 16 Blood Pressure 135/65 Blood Pressure [Left Arm] 135/65 118/98 H Pulse Oximetry 99 98 99 04/05/19 14:00 04/05/19 15:00 04/05/19 15:56 Temperature Pulse Rate 99 H 89 89 Respiratory Rate 16 16 20 Blood Pressure 98/56 L Blood Pressure [Left Arm] 121/65 118/60 Pulse Oximetry 94 99 98 MDM - GI Bleed <Francy Forrest, [employer] SALES CONSULTANT- - Last Filed: 04/05/19 16:28> Lab Data Result diagrams: 04/05/19 13:30 04/05/19 13:30 Lab Results 04/05/19 04/05/19 04/05/19 Range/Units 13:30 13:30 14:00 WBC 16.6 H (4.5-11.0) X10^3/uL RBC 4.43 (4.0-5.2) X10^6/uL Hgb 12.3 (12.0-16.0) g/dL Hct 36.8 (36-46) % MCV 83.0 (80-100) fL MCH 27.7 (26-34) PG MCHC 33.3 (30-36) % RDW 14.1 (11.6-14.8) % Plt Count 425 H (150-400) X10^3/uL Neut % (Auto) 79.2 H (50-75) % Lymph % (Auto) 14.8 L (25-40) % Greenlee % (Auto) 4.7 (3-14) % Eos % (Auto) 0.6 L (2-4) % Baso % (Auto) 0.7 (0-2) % Neut # (Auto) 92350 H (2943-4681) /uL Lymph # (Auto) 2500 (8381-9350) /uL Greenlee # (Auto) 800 (0-900) /uL Eos # (Auto) 100 (0-450) /uL Baso # (Auto) 100 (0-100) /uL PT 10.6 (10.1-12.7) SECONDS INR 0.9 (0.9-1.3) APTT 27 (26.4-36.2) SECONDS Sodium 139 (137-145) mmol/L Potassium 4.1 (3.4-5.1) mmol/L Chloride 109 H (98-107) mmol/L Carbon Dioxide 20 L (22-32) mmol/L BUN 6 L (7-17) mg/dL Creatinine 0.50 L (0.52-1.04) mg/dL Estimated GFR > 60.0 (>60) mL/min BUN/Creatinine Ratio 12.0 (6-22) Glucose 87 (70-100) mg/dL Calcium 8.7 (8.4-10.2) mg/dL Total Bilirubin 0.3 (0.2-1.3) mg/dL AST 22 (14-36) IU/L ALT 15 (9-52) IU/L Alkaline Phosphatase 120 (38-126) U/L Total Protein 7.4 (6.3-8.2) g/dL Albumin 3.9 (3.5-5.0) g/dL Globulin 3.5 (1.7-4.1) g/dL Albumin/Globulin Ratio 1.1 (1.0-2.8) Lipase 42 (23-300) U/L Blood Type Antibody Screen 04/05/19 Range/Units 14:00 WBC (4.5-11.0) X10^3/uL RBC (4.0-5.2) X10^6/uL Hgb (12.0-16.0) g/dL Hct (36-46) % MCV (80-100) fL MCH (26-34) PG MCHC (30-36) % RDW (11.6-14.8) % Plt Count (150-400) X10^3/uL Neut % (Auto) (50-75) % Lymph % (Auto) (25-40) % Greenlee % (Auto) (3-14) % Eos % (Auto) (2-4) % Baso % (Auto) (0-2) % Neut # (Auto) (4012-2311) /uL Lymph # (Auto) (8615-2562) /uL Greenlee # (Auto) (0-900) /uL Eos # (Auto) (0-450) /uL Baso # (Auto) (0-100) /uL PT (10.1-12.7) SECONDS INR (0.9-1.3) APTT (26.4-36.2) SECONDS Sodium (137-145) mmol/L Potassium (3.4-5.1) mmol/L Chloride (98-107) mmol/L Carbon Dioxide (22-32) mmol/L BUN (7-17) mg/dL Creatinine (0.52-1.04) mg/dL Estimated GFR (>60) mL/min BUN/Creatinine Ratio (6-22) Glucose (70-100) mg/dL Calcium (8.4-10.2) mg/dL Total Bilirubin (0.2-1.3) mg/dL AST (14-36) IU/L ALT (9-52) IU/L Alkaline Phosphatase (38-126) U/L Total Protein (6.3-8.2) g/dL Albumin (3.5-5.0) g/dL Globulin (1.7-4.1) g/dL Albumin/Globulin Ratio (1.0-2.8) Lipase (23-300) U/L Blood Type O Positive Antibody Screen Negative Point of Care Testing Test Results Negative Urine Dip Bedside Urine Glucose Negative Bedside Urine Bilirubin - Negative Bedside Urine Ketone - Negative Urine Specific [place] 1.030 Bedside Urine Occult Blood + Bedside Urine pH 6.0 Bedside Urine Protein +/- 15 Bedside Urine Urobilinogen - Negative Bedside Urine Nitrite - Negative Bedside Urine Leukocytes ++ [address] scan - abdomen: Radiologist's impression: Dasia Delatorre 38 F [address] [address] [address] Scan Report Signed Patient: NandiniDasia KMR#: [id number] : 1980Acct:[id number] Age/Sex: 38 / FDate of Service: 04/05/19 Loc: ED Accession Number: [id number] Procedure: CT abdomen pelvis w con Ordering Provider: Francy Forrest PROCEDURE: CT ABDOMEN PELVIS W CON INDICATIONS: abd pain, rectal bleeding, elevated wbc TECHNIQUE: After the administration of intravenous contrast, 5 mm thick sections acquired from the diaphragm to the symphysis. 5 mm coronal and sagittal reformats were acquired. For radiation dose reduction, the following was used: automated exposure control, adjustment of mA and/or kV according to patient size. COMPARISON: [facility], CT, ABDOMEN/PELVIS WITH CONTRAST, 07/31/2015, 0:13. FINDINGS: Image quality: Excellent. ABDOMEN: Lung bases: No acute consolidation. Scattered subsegmental atelectasis and/or scarring. Heart size is normal. Solid organs: Focal enhancement within the central liver image 19 series 2 measuring 1.8 x 2.6 cm unchanged since 07/31/15 presumably hemangioma versus focal fatty sparing. Gallbladder contains multiple gallstones. No definite gallbladder wall thickening or pericholecystic inflammatory changes. Biliary system is non dilated. Pancreas enhances normally. 1 cm hypodense lesion in the spleen on image 10 is indeterminate although new since the prior study. No adrenal nodules. Kidneys demonstrate normal size and enhancement, without hydronephrosis. Peritoneum and bowel: There is suggestion of long segment diffuse transverse and descending colonic mural thickening. No free fluid or air. Appendix is not clearly identified however no suspicious pericecal inflammatory changes are identified Rectum is grossly unremarkable There are numerous colonic diverticula present although no definite focal implant diverticulitis noted. Nodes and vessels: No retroperitoneal or mesenteric adenopathy by size criteria. Aorta and inferior vena cava are normal in size. Miscellaneous: No ventral hernias. PELVIS: Genitourinary: The bladder is partially collapsed otherwise unremarkable Miscellaneous: No inguinal hernias or adenopathy. Bones: No suspicious bony lesions. No vertebral body compression fractures. IMPRESSION: Mild diffuse colonic wall thickening primarily involving the transverse and descending colon suggesting low grade infectious/inflammatory pancolitis. Please correlate with clinical and laboratory data. Cholelithiasis. However, no other CT evidence of acute cholecystitis. Please correlate clinically and with LFTs. Colonic diverticulosis. No definite focal inflamed diverticulitis identified. Additional chronic and incidental findings as above. Dictated by: Low Robison M.D. on 04/05/2019 at 14:51 Approved by: Low Robison M.D. on 04/05/2019 at 14:59 [facility] Narrative Medical decision making narrative: The patient is a 38-year-old female who presents with complaints of diffuse abdominal tenderness and bright red blood per rectum. Given her complaint combined with her elevated WBC I obtained a CT scan. Her CT scan indicates colitis. Given that her last episode improved with Cipro and Flagyl, I placed her on this again. I also gave her a burst of prednisone. The patient declined a rectal exam in the emergency department after she was unable to produce stool. I encouraged her to follow up with primary care provider, and stated she might need to follow up with [facility]. I discussed at length return precautions including dizziness, lightheadedness, severe hemorrhage or any acute concerns. Patient states understanding. We did discuss the incidental finding of a possible liver hemangioma on her pelvis CT. I encouraged her to follow up with primary care provider regarding this. I did discuss at length the black box warning associated with Cipro regarding tendinopathy. Also discussed not drinking on Flagyl. Encouraged simple diet. Patient was hemodynamically stable and afebrile throughout her stay in the emergency department. Discussed at length follow-up care as well as return precautions. Patient stated understanding of all the above and was able to ambulate outside the department for discharge. <Vale Osuna MD - Last Filed: 04/11/19 07:24> Lab Data Lab Results 04/05/19 04/05/19 04/05/19 Range/Units 13:30 13:30 14:00 WBC 16.6 H (4.5-11.0) X10^3/uL RBC 4.43 (4.0-5.2) X10^6/uL Hgb 12.3 (12.0-16.0) g/dL Hct 36.8 (36-46) % MCV 83.0 (80-100) fL MCH 27.7 (26-34) PG MCHC 33.3 (30-36) % RDW 14.1 (11.6-14.8) % Plt Count 425 H (150-400) X10^3/uL Neut % (Auto) 79.2 H (50-75) % Lymph % (Auto) 14.8 L (25-40) % Greenlee % (Auto) 4.7 (3-14) % Eos % (Auto) 0.6 L (2-4) % Baso % (Auto) 0.7 (0-2) % Neut # (Auto) 30078 H (7171-4751) /uL Lymph # (Auto) 2500 (1213-1863) /uL Greenlee # (Auto) 800 (0-900) /uL Eos # (Auto) 100 (0-450) /uL Baso # (Auto) 100 (0-100) /uL PT 10.6 (10.1-12.7) SECONDS INR 0.9 (0.9-1.3) APTT 27 (26.4-36.2) SECONDS Sodium 139 (137-145) mmol/L Potassium 4.1 (3.4-5.1) mmol/L Chloride 109 H (98-107) mmol/L Carbon Dioxide 20 L (22-32) mmol/L BUN 6 L (7-17) mg/dL Creatinine 0.50 L (0.52-1.04) mg/dL Estimated GFR > 60.0 (>60) mL/min BUN/Creatinine Ratio 12.0 (6-22) Glucose 87 (70-100) mg/dL Calcium 8.7 (8.4-10.2) mg/dL Total Bilirubin 0.3 (0.2-1.3) mg/dL AST 22 (14-36) IU/L ALT 15 (9-52) IU/L Alkaline Phosphatase 120 (38-126) U/L Total Protein 7.4 (6.3-8.2) g/dL Albumin 3.9 (3.5-5.0) g/dL Globulin 3.5 (1.7-4.1) g/dL Albumin/Globulin Ratio 1.1 (1.0-2.8) Lipase 42 (23-300) U/L Blood Type Antibody Screen 04/05/19 Range/Units 14:00 WBC (4.5-11.0) X10^3/uL RBC (4.0-5.2) X10^6/uL Hgb (12.0-16.0) g/dL Hct (36-46) % MCV (80-100) fL MCH (26-34) PG MCHC (30-36) % RDW (11.6-14.8) % Plt Count (150-400) X10^3/uL Neut % (Auto) (50-75) % Lymph % (Auto) (25-40) % Greenlee % (Auto) (3-14) % Eos % (Auto) (2-4) % Baso % (Auto) (0-2) % Neut # (Auto) (8866-0512) /uL Lymph # (Auto) (0413-8258) /uL Greenlee # (Auto) (0-900) /uL Eos # (Auto) (0-450) /uL Baso # (Auto) (0-100) /uL PT (10.1-12.7) SECONDS INR (0.9-1.3) APTT (26.4-36.2) SECONDS Sodium (137-145) mmol/L Potassium (3.4-5.1) mmol/L Chloride (98-107) mmol/L Carbon Dioxide (22-32) mmol/L BUN (7-17) mg/dL Creatinine (0.52-1.04) mg/dL Estimated GFR (>60) mL/min BUN/Creatinine Ratio (6-22) Glucose (70-100) mg/dL Calcium (8.4-10.2) mg/dL Total Bilirubin (0.2-1.3) mg/dL AST (14-36) IU/L ALT (9-52) IU/L Alkaline Phosphatase (38-126) U/L Total Protein (6.3-8.2) g/dL Albumin (3.5-5.0) g/dL Globulin (1.7-4.1) g/dL Albumin/Globulin Ratio (1.0-2.8) Lipase (23-300) U/L Blood Type O Positive Antibody Screen Negative Point of Care Testing Test Results Negative Urine Dip Bedside Urine Glucose Negative Bedside Urine Bilirubin - Negative Bedside Urine Ketone - Negative Urine Specific [place] 1.030 Bedside Urine Occult Blood + Bedside Urine pH 6.0 Bedside Urine Protein +/- 15 Bedside Urine Urobilinogen - Negative Bedside Urine Nitrite - Negative Bedside Urine Leukocytes ++ 125 Esterase Discharge Plan Departure Patient Disposition: Home Clinical Impression: Colitis Discharge Date/Time: 04/05/19 15:56 Interventions: ED Discharge Assessment Last Done: 04/05/19 15:56 Instructions: DI for Rectal Bleeding, DI for Colitis Activity Restrictions/Additional Instructions: For your CT scan shows evidence of colitis. Let's use prednisone and Cipro and Flagyl as this has worked for him in the past. Please follow up with primary care provider soon as possible. You may need to follow up with GI as well. Please come back to the emergency department for any acute concerns such as lightheadedness dizziness. Please rest and push fluids. I recommend a simple diet. You can start the prednisone tomorrow since you already had the IV vick roid today. Come back to the emergency department if he need to. Please call your primary care provider for follow-up as soon as possible. Do not drink alcohol with Flagyl. Prescriptions: New ciprofloxacin HCl 500 mg tablet 500 mg PO BID Qty: 14 RF: 0 prednisone 50 mg tablet 50 mg PO DAILY Qty: 5 RF: 0 metronidazole 500 mg tablet 500 mg PO TID Qty: 30 RF: 0 No Action acetaminophen [Tylenol Extra Strength] 500 mg tablet 1,000 mg PO Q6H PRN (Reason: pain) RF: 0 norgestimate-ethinyl estradiol 0.18/0.215/0.25 mg-25 mcg tablet 1 tab PO DAILY Qty: 84 RF: 3 ranitidine HCl 150 mg Tablet 150 mg PO DAILY PRN (Reason: Acid Reflux) RF: 0 Imodium Multi-Symptom Relief 2-125 mg Tablet 1 tab PO PRN PRN (Reason: stomach distress) RF: 0 sumatriptan succinate 50 mg tablet 50 mg PO PRN PRN (Reason: Migraine Headache) RF: 0 amitriptyline 50 mg tablet 50 - 75 mg PO BEDTIME PRN (Reason: pain) RF: 0 Referrals: Connie Garcia PA-C [Primary Care Provider] - Stand Alone Forms: Work Release Note
== END 2019-04-05 15:56 | disposition home or self-care (01) ==
PROVIDERS: Emergency Medicine; Emergency Provider Nurse Practitioner Family; Family Provider Physician Assistant; PCP Physician Assistant
DX: K52.9 Noninfective gastroenteritis and colitis, unspecified (principal)
CPT/HCPCS: 36591; 74177; 80053; 81003; 81025; 83690; 85025; 85610; 85730; 86850; 86900; 86901; 96361; 96374; 96375; 99283; 99284; J1200; J2930

== ENCOUNTER → 2020-11-29 16:02 | Outpatient (CLI) | payer OTHER, SELFPAY ==
[2020-11-29] MEDS: COVID-19 VACC(MODERNA-1)/PF 100 MCG/0.5 ML VIAL IM (16:25)
== END ==
PROVIDERS: Family Provider Physician Assistant; PCP Registered Nurse Diabetes Educator; Visit Provider Internal Medicine
DX: Z23 Encounter for immunization (principal)
CPT/HCPCS: 0011A; 91301

== ENCOUNTER → 2020-12-26 15:06 | Outpatient (CLI) | payer OTHER, SELFPAY ==
[2020-12-26] MEDS: COVID-19 VACC #2, MRNA(MOD) 100 MCG/0.5 ML VIAL IM (15:13)
== END ==
PROVIDERS: Family Provider Physician Assistant; PCP Registered Nurse Diabetes Educator; Visit Provider Internal Medicine
DX: Z23 Encounter for immunization (principal)
CPT/HCPCS: 0012A; 91301

== ENCOUNTER 2021-08-25 14:51 | Emergency (ER) | payer OTHER, SELFPAY ==
[2021-08-25 14:59] VITALS: BP 126/74; PULSE 111; RESP 22; TEMP 36.6; O2SAT 100
[2021-08-25 15:45] LABS: Alanine Aminotransferase 14 IU/L (<35); Albumin 4.5 g/dL (3.5-5.0); Albumin Globulin Ratio 1.2 (1.0-2.8); Alkaline Phosphatase 113 U/L (38-126); Aspartate Aminotransferase 23 IU/L (14-36); BUN Creatinine Ratio 12.7 (6-22); Bilirubin Total 0.5 mg/dL (0.2-1.3); Blood Urea Nitrogen 7 mg/dL (7-17); Calcium 9.4 mg/dL (8.4-10.2); Carbon Dioxide 24 mmol/L (22-32); Chloride 105 mmol/L (98-107); Estimated Glomerular Filt Rate > 60.0 mL/min (>60); Globulin 3.9 g/dL (1.7-4.1); Glucose 96 mg/dL (70-100); HEMOLYSIS < 15 (0-50); Lipase 38 U/L (23-300); Potassium 3.7 mmol/L (3.4-5.1); Sodium 139 mmol/L (137-145); Total Protein 8.4 g/dL (6.3-8.2)
[2021-08-25 15:48] LABS: Add Manual Diff / Slide Review NO; Basophils Absolute Auto 100 /uL (0-100); Basophils Percent Auto 0.5 % (0-2); Eosinophils Absolute Auto 0 /uL (0-450); Eosinophils Percent Auto 0.1 % (2-4); Hemoglobin 14.1 g/dL (12.0-16.0); Lymphocytes Absolute Auto 2700 /uL (1100-4500); Lymphocytes Percent Auto 19.2 % (25-40); Mean Corpuscular HGB Conc 33.6 % (30-36); Mean Corpuscular Hemoglobin 27.7 PG (26-34); Mean Corpuscular Volume 82.3 fL (80-100); Monocytes Absolute Auto 900 /uL (0-900); Monocytes Percent Auto 6.3 % (3-14); Neutrophils Absolute Auto 10300 /uL (1500-7000); Neutrophils Percent Auto 73.9 % (50-75); Platelet Count 415 X10^3/uL (150-400); Red Cell Distribution Width 13.5 % (11.6-14.8); White Blood Cell Count 13.9 X10^3/uL (4.5-11.0)
--- NOTE | 2021-08-25 19:26 | ED_ITS ---
HPI - Abdominal Pain General Chief Complaint: Abdominal Pain Stated Complaint: N/V abd pain Time Seen by Provider: 08/25/21 19:25 Source: patient and family (father at bedside) Mode of arrival: Ambulatory Limitations: no limitations History of Present Illness HPI narrative: This is a 40-year-old female comes with complaint of abdominal and nausea vomiting that occurred for about 12 hours last night. Patient states she has had chronic abdominal issues but it is usually lower, and describes a bloating sensation. Last night was higher up was also all the way into her back on both sides. She was afebrile. She did not have any diaphoresis. She had nausea and vomiting starting at 4:00 a.m. in the morning to about 9:00 a.m. in the morning. She has had normal bowel movements and denies constipation, black or bloody stools or diarrhea. She denies dysuria, urgency or frequency. She denies vaginal bleeding or discharge. Patient states she typically has difficulty food and her symptoms began shortly after eating. She tried and omeprazole 20 mg and Gas-X with minimal improvement. She takes an oral cont raceptive daily. She has seen a restaurant cashier and had EGD and colonoscopy in 2017. She has not had any since then. She has had episodes of colitis in the past. She states this feels totally different and that she had rectal bleeding at that time. She denies any other medical issues. She denies any prior surgeries or abdominal surgeries. She does smoke, occasional alcohol, no illicit. Related Data Home Medications Medication Instructions Recorded Confirmed acetaminophen 500 mg tablet 1,000 mg PO Q6H PRN 04/04/18 09/24/20 (Tylenol Extra Strength) loperamide-simethicone 2 mg-125 mg 1 tab PO PRN PRN 04/05/19 09/24/20 tablet (Imodium Multi-Symptom Relief) ibuprofen 200 mg tablet (Advil) 200 mg PO Q6H PRN 09/23/20 09/24/20 omeprazole 20 mg capsule,delayed 20 mg PO DAILY 09/23/20 09/24/20 release simethicone PO 09/23/20 09/24/20 Previous Rx's Medication Instructions Recorded norgestimate 0.18 mg/0.215 mg/0.25 1 tab PO DAILY #84 tab 09/23/20 mg-ethinyl estradiol 25 mcg tablet Allergies Allergy/AdvReac Type Severity Reaction Status Date / Time amoxicillin [AMOXICILLIN] Allergy Mild RASH, HIVES Verified 09/24/20 09:03 Penicillins [PENICILLINS] Allergy Mild RASH, HIVES Verified 09/24/20 09:03 venlafaxine [VENLAFAXINE] AdvReac Severe PALPITATION Verified 09/24/20 09:03 S sertraline [SERTRALINE] AdvReac Intermediate HEART Verified 09/24/20 09:03 PALPITATIONS trazodone [TRAZODONE] AdvReac Intermediate CHEST HEAVY Verified 09/24/20 09:03 Review of Systems Review of Systems ROS Unobtainable: All systems reviewed & are unremarkable except as noted in HPI and below Patient History Medical History (Updated 08/25/21 @ 19:41 by Francy Griffith DO) Abnormal Pap smear of cervix (~1995) Anxiety (~2001) Chickenpox (~1981) Current smoker Depression (~2001) Diverticula of colon (07/2017) Generalized headaches (Unknown) HPV (human papilloma virus) infection (2011) Nephrolithiasis (Unknown) Surgical History History of lithotripsy Family History Father Age: 64 Hyperlipidemia Hypertension Grandmother Diabetes mellitus Mother Age: 63 Controlled type 2 diabetes mellitus without complication, unspecified superintendent container terminal insulin use status Diabetes mellitus Hypertension Grandfather Stroke Grandmother Diabetes mellitus Heart disease Stroke Social History Smoking Status: Current every day smoker Smoking Status: Current every day smoker alcohol intake frequency: holidays/special occasions only Substance Use Type: does not use Exam Narrative Exam Narrative: GENERAL: Alert and oriented x three, female in mild distress. HEENT: Head normocephalic, atraumatic, EOMI, pupils reactive, face symmetric, moist mucous membranes NECK: Supple, full range of motion CARDIOVASCULAR: Regular rate and rhythm without murmurs, rubs or gallops. RESPIRATORY: Breath sounds equal bilaterally, no wheezes rales or rhonchi. ABDOMEN: Soft, nontender. Normoactive bowel sounds all 4 quadrants. No guarding or rebound, rigidity, no mass, nondistended. : No CVA tenderness EXTREMITIES: Normal range of motion, no clubbing or edema. Neurovascularly intact NEUROLOGICAL: Cranial nerves II through XII grossly intact. Moving all extremities SKIN: Warm, dry, no petechiae, no rashes or lesions. Initial Vital Signs Initial Vital Signs: Vital Signs Temperature 97.8 F 08/25/21 14:59 Pulse Rate 111 H 08/25/21 14:59 Respiratory Rate 22 08/25/21 14:59 Blood Pressure 126/74 08/25/21 14:59 Pulse Oximetry 100 08/25/21 14:59 Course Orders Ordered: Discontinued Medications Ondansetron HCl (Ondansetron 4 Mg/2 Ml Inj) 4 mg IV NOW ONE Stop: 08/25/21 15:22 Vital Signs Vital signs: Vital Signs - 8 hr 08/25/21 14:59 Temperature 97.8 F Pulse Rate 111 H Respiratory Rate 22 Blood Pressure 126/74 Pulse Oximetry 100 MDM - Abdominal Pain Lab Data Result diagrams: 08/25/21 15:23 08/25/21 15:23 Labs: Lab Results 08/25/21 08/25/21 Range/Units 15:23 15:23 WBC 13.9 H (4.5-11.0) X10^3/uL RBC 5.10 (4.0-5.2) X10^6/uL Hgb 14.1 (12.0-16.0) g/dL Hct 42.0 (36-46) % MCV 82.3 (80-100) fL MCH 27.7 (26-34) PG MCHC 33.6 (30-36) % RDW 13.5 (11.6-14.8) % Plt Count 415 H (150-400) X10^3/uL Neut % (Auto) 73.9 (50-75) % Lymph % (Auto) 19.2 L (25-40) % [place] % (Auto) 6.3 (3-14) % Eos % (Auto) 0.1 L (2-4) % Baso % (Auto) 0.5 (0-2) % Neut # (Auto) 69178 H (5165-3692) /uL Lymph # (Auto) 2700 (5963-1950) /uL [place] # (Auto) 900 (0-900) /uL Eos # (Auto) 0 (0-450) /uL Baso # (Auto) 100 (0-100) /uL Sodium 139 (137-145) mmol/L Potassium 3.7 (3.4-5.1) mmol/L Chloride 105 (98-107) mmol/L Carbon Dioxide 24 (22-32) mmol/L BUN 7 (7-17) mg/dL Creatinine 0.55 (0.52-1.04) mg/dL Estimated GFR > 60.0 (>60) mL/min BUN/Creatinine Ratio 12.7 (6-22) Glucose 96 (70-100) mg/dL Calcium 9.4 (8.4-10.2) mg/dL Total Bilirubin 0.5 (0.2-1.3) mg/dL AST 23 (14-36) IU/L ALT 14 (<35) IU/L Alkaline Phosphatase 113 (38-126) U/L Total Protein 8.4 H (6.3-8.2) g/dL Albumin 4.5 (3.5-5.0) g/dL Globulin 3.9 (1.7-4.1) g/dL Albumin/Globulin Ratio 1.2 (1.0-2.8) Lipase 38 (23-300) U/L MDM Narrative Medical decision making narrative: This is a 40-year-old female with acute on chronic abdominal pain. Patient's pain has actually also resolved. She had vomiting overnight but has not had any additional today. She has a mild leukocytosis and slight elevation in her platelets but with normal neutrophil and slightly low lymph node percentage. Patient's CMP and lipase are negative. Patient had not given a urine sample department and had accidentally urinated just prior to my evaluation without obtaining a sample. After discussion patient defers waiting for repeat urine. She and I discussed and at this time would defer CT imaging. She has had colonoscopy an EGD but has been several years so we discussed that would likely be appropriate for to follow up with her restaurant cashier for recheck as she has had chronic recurring issues. Return precautions discussed. All questions answered. Discharge Plan Departure Patient Disposition: Home Clinical Impression: Abdominal pain Instructions: DI for Abdominal Pain-Adult Activity Restrictions/Additional Instructions: Follow-up with your physician for recheck. I do encourage you to get repeat colonoscopy and EGD with gastroenterology. We did not check your urine today so if you develop urinary symptoms such as burning, frequency or incomplete sense of emptying have your urine checked. Please give your restaurant cashier to call to follow-up. You may increase your omeprazole from 1-2 tablets or from 20-40 mg daily Slowly advance your diet as tolerated. Please start with clear fluids. Please return for fevers, recurrent symptoms, persistent vomiting, lightheadedness or passing out, black or bloody stools, your worsening abdominal, back or flank pain or other new or concerning symptoms. Prescriptions: No Action acetaminophen [Tylenol Extra Strength] 500 mg tablet 1,000 mg PO Q6H PRN (Reason: pain) RF: 0 omeprazole 20 mg capsule,delayed release(DR/EC) 20 mg PO DAILY RF: 0 simethicone PO RF: 0 ibuprofen [Advil] 200 mg tablet 200 mg PO Q6H PRNRF: 0 norgestimate-ethinyl estradiol 0.18/0.215/0.25 mg-25 mcg tablet 1 tab PO DAILY Qty: 84 RF: 3 Imodium Multi-Symptom Relief 2-125 mg Tablet 1 tab PO PRN PRN (Reason: stomach distress) RF: 0 Referrals: Tao Mao ARNP [Primary Care Provider] -
== END 2021-08-25 19:48 | disposition home or self-care (01) ==
PROVIDERS: Emergency Medicine; Emergency Provider Emergency Medicine; Family Provider Physician Assistant; PCP Registered Nurse Diabetes Educator
DX: R10.9 Unspecified abdominal pain (principal); R11.2 Nausea with vomiting, unspecified
CPT/HCPCS: 80053; 83690; 85025; 99281; 99283

== ENCOUNTER 2022-01-22 22:17 | Emergency (ER) | payer OTHER, SELFPAY ==
[2022-01-22 22:20] VITALS: BP 147/81; PULSE 110; RESP 18; TEMP 36.8; O2SAT 99; BMI 28.3
--- NOTE | 2022-01-22 22:35 | DI.CT.S_ITS ---
PROCEDURE: CT KIDNEY URETER BLADDER (KUB) INDICATIONS: Right flank pain concern for stone TECHNIQUE: Axial sections were acquired from the lung bases to the pubic symphysis. Coronal and sagittal reformats were performed. For radiation dose reduction, the following was used: automated exposure control, adjustment of mA and/or kV according to patient size. COMPARISON: None. FINDINGS: Image quality: Excellent. Lung bases: Unremarkable. Heart: No significant findings. URINARY: There is no nephrolithiasis. No left hydronephrosis. Mild right hydronephrosis. Mild diffuse right ureteral dilatation. 2 mm diameter right ureterovesical junction calculus. Urinary bladder grossly unremarkable. ABDOMEN: Liver: Unremarkable. Gallbladder: Demonstrates multiple calculi within its lumen. No evidence of cholecystitis. Biliary ducts: Unremarkable. Pancreas: Unremarkable. Spleen: Unremarkable. Adrenal Glands: Unremarkable. Stomach and Bowel: Small hiatal hernia. Stomach, small bowel loops, and colon are unremarkable. Normal appendix. Peritoneum: No abnormal intraperitoneal fluid. No free air. Ventral Wall: No hernia. Abdominal Nodes: No enlarged retroperitoneal or mesenteric lymph nodes. Vessels: Aorta and inferior vena cava are normal in size. PELVIS: Pelvic Organs: Unremarkable. Pelvic Nodes: Unremarkable. Miscellaneous: No inguinal hernias are seen. Bones: Unremarkable. IMPRESSION: 1. Right ureterovesical junction calculus associated with mild right hydronephrosis. 2. Normal appendix. 3. Cholelithiasis with no evidence of associated cholecystitis. 4. Small hiatal hernia. Dictated by: Silvestre Nugent M.D. on 01/22/2022 at 23:32 Approved by: Silvestre Nugent M.D. on 01/22/2022 at 23:34
--- NOTE | 2022-01-22 22:36 | ED.GENADULT ---
HPI - General Adult General Chief complaint: Abdominal Pain Stated complaint: abd pain, vomiting, arm pain Time Seen by Provider: 01/22/22 22:27 Source: patient Mode of arrival: Ambulatory Limitations: no limitations History of Present Illness HPI narrative: Patient is a 41-year-old female who is here for evaluation of nausea and vomiting and right-sided lower abdominal pain and right flank pain. She also states that around the time that she was vomiting she got tingling in both of her arms. The pain in her abdomen is still present but it has eased up somewhat. No urinary symptoms. No change in bowel habits. No fevers. No vaginal bleeding. She has had a kidney stone in the past and has needed lithotripsy but this feels different than prior stones. Has not tried anything for the symptoms prior to arrival. Related Data Home Medications Medication Instructions Recorded Confirmed acetaminophen 500 mg tablet 1,000 mg PO Q6H PRN 04/04/18 09/24/20 (Tylenol Extra Strength) loperamide-simethicone 2 mg-125 mg 1 tab PO PRN PRN 04/05/19 09/24/20 tablet (Imodium Multi-Symptom Relief) ibuprofen 200 mg tablet (Advil) 200 mg PO Q6H PRN 09/23/20 09/24/20 omeprazole 20 mg capsule,delayed 20 mg PO DAILY 09/23/20 09/24/20 release simethicone PO 09/23/20 09/24/20 Previous Rx's Medication Instructions Recorded amitriptyline 25 mg tablet 25 mg PO BEDTIME #60 tab 09/09/21 norgestimate 0.18 mg/0.215 mg/0.25 1 tab PO DAILY #84 tab 09/09/21 mg-ethinyl estradiol 25 mcg tablet hydrocodone 5 mg-acetaminophen 325 1 tab PO Q4-6H PRN #7 tab 01/23/22 mg tablet ondansetron 4 mg disintegrating 4 mg PO Q6H PRN #7 tab 01/23/22 tablet Allergies Allergy/AdvReac Type Severity Reaction Status Date / Time amoxicillin [AMOXICILLIN] Allergy Mild RASH, HIVES Verified 09/09/21 09:13 Penicillins [PENICILLINS] Allergy Mild RASH, HIVES Verified 09/09/21 09:13 venlafaxine [VENLAFAXINE] AdvReac Severe PALPITATION Verified 09/09/21 09:13 S sertraline [SERTRALINE] AdvReac Intermediate HEART Verified 09/09/21 09:13 PALPITATIONS trazodone [TRAZODONE] AdvReac Intermediate CHEST HEAVY Verified 09/09/21 09:13 Review of Systems Review of Systems ROS Unobtainable: All systems reviewed & are unremarkable except as noted in HPI and below Constitutional Constitutional: Denies fever(s) Gastrointestinal Gastrointestinal: Reports as per HPI and Reports system reviewed and no additional complaints, except as documented Genitourinary Genitourinary: Reports system reviewed and no additional complaints, except as documented and Reports as per HPI Musculoskeletal Musculoskeletal: Reports system reviewed and no additional complaints, except as documented and Reports as per HPI Integumentary/Breasts Skin/Breast: Reports system reviewed and no additional complaints, except as documented and Reports as per HPI Neurologic Neurologic: Reports system reviewed and no additional complaints, except as documented Hematologic/Lymphatic On Anticoagulants: No Patient History Medical History Abnormal Pap smear of cervix (~1995) Anxiety (~2001) Chickenpox (~1981) Current smoker Depression (~2001) Diverticula of colon (07/2017) Generalized headaches (Unknown) HPV (human papilloma virus) infection (2011) IBS (irritable bowel syndrome) Nephrolithiasis (Unknown) Surgical History History of lithotripsy Family History Father Age: 64 Hyperlipidemia Hypertension Grandmother Diabetes mellitus Mother Age: 63 Controlled type 2 diabetes mellitus without complication, unspecified fci insulin use status Diabetes mellitus Hypertension Grandfather Stroke Grandmother Diabetes mellitus Heart disease Stroke Social History Smoking Status: Current every day smoker Smoking Status: Current every day smoker alcohol intake frequency: holidays/special occasions only Substance Use Type: does not use Exam Initial Vital Signs Initial Vital Signs: Vital Signs Temperature 98.3 F 01/22/22 22:20 Pulse Rate 110 H 01/22/22 22:20 Respiratory Rate 18 01/22/22 22:20 Blood Pressure 147/81 H 01/22/22 22:20 Pulse Oximetry 99 01/22/22 22:20 [facility] Head: normal to inspection Resp Effort & Inspection: normal respiratory effort Cardio Rate: regular rate GI Inspection: normal to inspection Palpation: soft, No firm and No tender Back/Spine/Pelvis Back: No CVA tenderness Skin General: no rashes or lesions noted Neuro General: patient alert, patient awake and moves all extremities Extrem General: normal to inspection and capillary refill normal Psych Appearance: grossly normal Course Orders Ordered: ED Orders 01/22/22 22:35 CT kidney ureter bladder (KUB) Stat 01/22/22 22:57 Complete Blood Count AUTO DIFF Stat Comprehensive Metabolic Panel Stat Lipase Stat Test Serum,Qual Stat 01/22/22 23:54 Urinalysis and Microscopic Stat Discontinued Medications Hydrocodone Bitart/Acetaminophen (Hydrocodone/Acet 5/325 Prepack) 1 bottle MISC SEEINSTR ONE Stop: 01/23/22 00:23 Last Admin: 01/23/22 00:41 Dose: 1 bottle Documented by: EDITH Morphine Sulfate (Morphine 4 Mg/Ml Inj) 4 mg IV NOW ONE Stop: 01/22/22 22:38 Last Admin: 01/22/22 22:58 Dose: 4 mg Documented by: EDITH Ondansetron HCl (Ondansetron 4 Mg/2 Ml Inj) 4 mg IV NOW ONE Stop: 01/22/22 22:38 Last Admin: 01/22/22 22:58 Dose: 4 mg Documented by: EDITH Ondansetron HCl (Ondansetron 4 Mg Odt Prepack) 1 bottle MISC SEEINSTR ONE Stop: 01/23/22 00:23 Last Admin: 01/23/22 00:41 Dose: 1 bottle Documented by: EDITH Vital Signs Vital signs: Vital Signs - 8 hr 01/22/22 22:20 01/22/22 23:39 01/23/22 00:39 Temperature 98.3 F Pulse Rate 110 H 99 H 88 Respiratory Rate 18 16 Blood Pressure 147/81 H 120/63 122/60 Pulse Oximetry 99 97 100 Medical Decision Making Medical Records Medical records reviewed: Yes I reviewed the patient's medical records. Lab Data Lab results reviewed: Yes I reviewed the patient's lab results. Result diagrams: 01/22/22 22:57 01/22/22 22:57 Labs: Lab Results 01/22/22 01/22/22 01/22/22 Range/Units 22:57 22:57 22:57 WBC 15.9 H (4.5-11.0) X10^3/uL RBC 4.69 (4.0-5.2) X10^6/uL Hgb 12.8 (12.0-16.0) g/dL Hct 39.2 (36-46) % MCV 83.6 (80-100) fL MCH 27.3 (26-34) PG MCHC 32.6 (30-36) % RDW 13.6 (11.6-14.8) % Plt Count 390 (150-400) X10^3/uL Neut % (Auto) 86.2 H (50-75) % Lymph % (Auto) 8.9 L (25-40) % [place] % (Auto) 4.1 (3-14) % Eos % (Auto) 0.2 L (2-4) % Baso % (Auto) 0.6 (0-2) % Neut # (Auto) 41193 H (5647-1618) /uL Lymph # (Auto) 1400 (9459-0769) /uL [place] # (Auto) 700 (0-900) /uL Eos # (Auto) 0 (0-450) /uL Baso # (Auto) 100 (0-100) /uL Sodium 138 (137-145) mmol/L Potassium 3.6 (3.4-5.1) mmol/L Chloride 107 (98-107) mmol/L Carbon Dioxide 24 (22-32) mmol/L BUN 7 (7-17) mg/dL Creatinine 0.55 (0.52-1.04) mg/dL Estimated GFR > 60.0 (>60) mL/min BUN/Creatinine Ratio 12.7 (6-22) Glucose 108 H (70-100) mg/dL Calcium 9.2 (8.4-10.2) mg/dL Total Bilirubin 0.6 (0.2-1.3) mg/dL AST 27 (14-36) IU/L ALT 17 (<35) IU/L Alkaline Phosphatase 111 (38-126) U/L Total Protein 8.6 H (6.3-8.2) g/dL Albumin 4.6 (3.5-5.0) g/dL Globulin 4.0 (1.7-4.1) g/dL Albumin/Globulin Ratio 1.2 (1.0-2.8) Lipase 110 (23-300) U/L Serum , Qual Negative (Negative) Urine Color Urine Appearance Urine pH (4.5-8.0) Ur Specific [place] (1.000-1.035) Urine Protein (Negative) Urine Glucose (UA) (Negative) g/dL Urine Ketones (NEGATIVE) Urine Occult Blood (Negative) Urine Nitrate (Negative) Urine Bilirubin (NEGATIVE) Urine Urobilinogen (0.2) E.U./dL Ur Leukocyte Esterase (NEGATIVE) Urine RBC (0-5/HPF) Urine WBC (0-5/HPF) Ur Squamous Epith Cells (0-5/HPF) Urine Bacteria (None) Ur Culture Indicated? 01/22/22 Range/Units 23:54 WBC (4.5-11.0) X10^3/uL RBC (4.0-5.2) X10^6/uL Hgb (12.0-16.0) g/dL Hct (36-46) % MCV (80-100) fL MCH (26-34) PG MCHC (30-36) % RDW (11.6-14.8) % Plt Count (150-400) X10^3/uL Neut % (Auto) (50-75) % Lymph % (Auto) (25-40) % [place] % (Auto) (3-14) % Eos % (Auto) (2-4) % Baso % (Auto) (0-2) % Neut # (Auto) (6331-0354) /uL Lymph # (Auto) (8937-9607) /uL [place] # (Auto) (0-900) /uL Eos # (Auto) (0-450) /uL Baso # (Auto) (0-100) /uL Sodium (137-145) mmol/L Potassium (3.4-5.1) mmol/L Chloride (98-107) mmol/L Carbon Dioxide (22-32) mmol/L BUN (7-17) mg/dL Creatinine (0.52-1.04) mg/dL Estimated GFR (>60) mL/min BUN/Creatinine Ratio (6-22) Glucose (70-100) mg/dL Calcium (8.4-10.2) mg/dL Total Bilirubin (0.2-1.3) mg/dL AST (14-36) IU/L ALT (<35) IU/L Alkaline Phosphatase (38-126) U/L Total Protein (6.3-8.2) g/dL Albumin (3.5-5.0) g/dL Globulin (1.7-4.1) g/dL Albumin/Globulin Ratio (1.0-2.8) Lipase (23-300) U/L Serum , Qual (Negative) Urine Color Yellow Urine Appearance Clear Urine pH 5.5 (4.5-8.0) Ur Specific [place] 1.015 (1.000-1.035) Urine Protein 1+ H (Negative) Urine Glucose (UA) Negative (Negative) g/dL Urine Ketones Trace H (NEGATIVE) Urine Occult Blood 3+ H (Negative) Urine Nitrate Negative (Negative) Urine Bilirubin Negative (NEGATIVE) Urine Urobilinogen 0.2 (0.2) E.U./dL Ur Leukocyte Esterase Negative (NEGATIVE) Urine RBC 30-100/hpf H (0-5/HPF) Urine WBC None seen (0-5/HPF) Ur Squamous Epith Cells 1-5 /hpf (0-5/HPF) Urine Bacteria Few (2-10) H (None) Ur Culture Indicated? Cult not indicated Imaging Data CT scan - abdomen/pelvis: Radiologist's Impression: [place] [address] CT Scan Report Signed Patient: Dasia Delatorre MR#: [id number] : 1980 Acct:[id number] Age/Sex: 41 / F Date of Service: 01/22/22 Loc: ED Accession Number: [id number] ?? Procedure: CT kidney ureter bladder (KUB) Ordering Provider: Baljinder Frances D.O. PROCEDURE:? CT KIDNEY URETER BLADDER (KUB) ? INDICATIONS:? Right flank pain concern for stone ? TECHNIQUE:? Axial sections were acquired from the lung bases to the pubic symphysis.? Coronal and sagittal reformats were performed.? For radiation dose reduction, the following was used: ?automated exposure control, adjustment of mA and/or kV according to patient size.? ? COMPARISON:? None. ? FINDINGS:? Image quality:? Excellent.? ? Lung bases:? Unremarkable.? ? Heart:? No significant findings. ? URINARY:? There is no nephrolithiasis.? No left hydronephrosis.? Mild right hydronephrosis.? Mild diffuse right ureteral dilatation.? 2 mm diameter right ureterovesical junction calculus.? Urinary bladder grossly unremarkable. ? ABDOMEN: Liver:? Unremarkable.? ? Gallbladder:? Demonstrates multiple calculi within its lumen.? No evidence of cholecystitis.? ? Biliary ducts:? Unremarkable.? ? Pancreas:? Unremarkable.? ? Spleen:? Unremarkable.? ? Adrenal Glands:? Unremarkable.? ? ? Stomach and Bowel:? Small hiatal hernia.? Stomach, small bowel loops, and colon are unremarkable.? Normal appendix. Peritoneum:? No abnormal intraperitoneal fluid.? No free air.? ? Ventral Wall: ? No hernia.? Abdominal Nodes:? No enlarged retroperitoneal or mesenteric lymph nodes.? Vessels:? Aorta and inferior vena cava are normal in size.? ? PELVIS: Pelvic Organs:? Unremarkable.? ? Pelvic Nodes: Unremarkable. Miscellaneous: No inguinal hernias are seen. ? ? ? Bones:? Unremarkable. ? IMPRESSION:? ? 1.? Right ureterovesical junction calculus associated with mild right hydronephrosis. 2. Normal appendix. 3. Cholelithiasis with no evidence of associated cholecystitis. 4. Small hiatal hernia.? Dictated by: Silvestre Nugent M.D. on 01/22/2022 at 23:32 ? ? Approved by: Silvestre Nugent M.D. on 01/22/2022 at 23:34?? MDM Narrative Medical decision making narrative: CT scan shows right-sided 2 mm distal ureteral stone which does correspond with the discomfort that she is having. Her urinalysis has bacteria had a but no other signs of an infection. She also has blood in her urine. Kidney functions unremarkable. Has a leukocytosis. Is afebrile. Her urine culture was pending although given her presentation I do feel that we should hold on any antibiotics is the do feel that a urinary tract infection is unlikely. Leukocytosis very easily could be explained due to stress reaction secondary to the events that led her here to the ER. No indication for urologic consultation. Will sent home with symptom control. Patient was given return precautions and follow-up instructions. She expressed understanding and agreement. Discharge Plan Departure Patient Disposition: Home Clinical Impression: Right ureteral stone Instructions: DI for Kidney Stones Activity Restrictions/Additional Instructions: The CT scan does show that you have a 2 mm stone on your right side that is most likely what is causing your symptoms. This is of the size that you will pass on your own. Take the pain medicine and nausea medicine is needed. Return to the emergency department for any new or worsening symptoms. Prescriptions: New hydrocodone-acetaminophen 5-325 mg tablet 1 tab PO Q4-6H PRN (Reason: pain) Qty: 7 0RF ondansetron 4 mg tablet,disintegrating 4 mg PO Q6H PRN (Reason: nausea and vomiting) Qty: 7 0RF No Action acetaminophen [Tylenol Extra Strength] 500 mg tablet 1,000 mg PO Q6H PRN (Reason: pain) 0RF omeprazole 20 mg capsule,delayed release(DR/EC) 20 mg PO DAILY 0RF simethicone PO 0RF ibuprofen [Advil] 200 mg tablet 200 mg PO Q6H PRN0RF norgestimate-ethinyl estradiol 0.18/0.215/0.25 mg-25 mcg tablet 1 tab PO DAILY Qty: 84 3RF amitriptyline 25 mg tablet 25 mg PO BEDTIME Qty: 60 3RF Rx Instructions: After 4 weeks if ineffective and no side effects increase to 2 tabs at bedtime Imodium Multi-Symptom Relief 2-125 mg Tablet 1 tab PO PRN PRN (Reason: stomach distress) 0RF Referrals: Tao Mao ARNP [Primary Care Provider] -
[2022-01-22] MEDS: MORPHINE 4 MG/ML INJ IV (22:58)
[2022-01-22] MEDS: ONDANSETRON 4 MG/2 ML INJ IV (22:58)
[2022-01-22 23:07] LABS: Add Manual Diff / Slide Review NO; Basophils Absolute Auto 100 /uL (0-100); Basophils Percent Auto 0.6 % (0-2); Eosinophils Absolute Auto 0 /uL (0-450); Eosinophils Percent Auto 0.2 % (2-4); Hematocrit 39.2 % (36-46); Hemoglobin 12.8 g/dL (12.0-16.0); Lymphocytes Absolute Auto 1400 /uL (1100-4500); Lymphocytes Percent Auto 8.9 % (25-40); Mean Corpuscular HGB Conc 32.6 % (30-36); Mean Corpuscular Hemoglobin 27.3 PG (26-34); Mean Corpuscular Volume 83.6 fL (80-100); Monocytes Absolute Auto 700 /uL (0-900); Monocytes Percent Auto 4.1 % (3-14); Neutrophils Absolute Auto 13700 /uL (1500-7000); Neutrophils Percent Auto 86.2 % (50-75); Platelet Count 390 X10^3/uL (150-400); Red Blood Cell Count 4.69 X10^6/uL (4.0-5.2); Red Cell Distribution Width 13.6 % (11.6-14.8); White Blood Cell Count 15.9 X10^3/uL (4.5-11.0)
[2022-01-22 23:21] LABS: Pregnancy Test Serum,Qual Negative (Negative)
[2022-01-22 23:23] LABS: Alanine Aminotransferase 17 IU/L (<35); Albumin 4.6 g/dL (3.5-5.0); Albumin Globulin Ratio 1.2 (1.0-2.8); Alkaline Phosphatase 111 U/L (38-126); Aspartate Aminotransferase 27 IU/L (14-36); BUN Creatinine Ratio 12.7 (6-22); Bilirubin Total 0.6 mg/dL (0.2-1.3); Blood Urea Nitrogen 7 mg/dL (7-17); Calcium 9.2 mg/dL (8.4-10.2); Carbon Dioxide 24 mmol/L (22-32); Chloride 107 mmol/L (98-107); Estimated Glomerular Filt Rate > 60.0 mL/min (>60); Glucose 108 mg/dL (70-100); HEMOLYSIS < 15 (0-50); Lipase 110 U/L (23-300); Potassium 3.6 mmol/L (3.4-5.1); Sodium 138 mmol/L (137-145); Total Protein 8.6 g/dL (6.3-8.2)
[2022-01-22 23:39] VITALS: BP 120/63; PULSE 99; O2SAT 97
[2022-01-22 23:59] LABS: Appearance Urine UA CLEAR; Bilirubin Urine UA NEGATIVE (NEGATIVE); Glucose Urine UA NEGATIVE (Negative); Ketones Urine UA TRACE (NEGATIVE); Leukocyte Esterase Urine UA NEGATIVE (NEGATIVE); Nitrite Urine UA NEGATIVE (Negative); Occult Blood Urine UA 3+ (Negative); Protein Urine UA 1+ (Negative); Specific Gravity Urine UA 1.015 (1.000-1.035); Urobilinogen Urine UA 0.2 E.U./dL (0.2)
[2022-01-23 00:08] LABS: pH Urine UA 5.5 (4.5-8.0)
[2022-01-23 00:10] LABS: Bacteria Urine Few (2-10); Color Urine UA Yellow; RBC Urine 30-100/HPF (0-5/HPF); Squamous Epithelial Cell Urine 1-5 /HPF (0-5/HPF); WBC Urine None Seen (0-5/HPF)
[2022-01-23 00:11] LABS: Culture Indicated Urine Cult Not Indicated
[2022-01-23 00:39] VITALS: BP 122/60; PULSE 88; RESP 16; O2SAT 100
[2022-01-23] MEDS: HYDROCODONE/ACET 5/325 PREPACK 1 BOTTLE MISC (00:41)
[2022-01-23] MEDS: ONDANSETRON 4 MG ODT PREPACK 1 BOTTLE MISC (00:41)
== END 2022-01-23 00:42 | disposition home or self-care (01) ==
PROVIDERS: Emergency Provider Emergency Medicine; Family Provider Physician Assistant; PCP Registered Nurse Diabetes Educator
DX: N13.2 Hydronephrosis with renal and ureteral calculous obstruction (principal); F17.200 Nicotine dependence, unspecified, uncomplicated
CPT/HCPCS: 36415; 74176; 80053; 81001; 83690; 84703; 85025; 96374; 96375; 99284; J2270; J2405

== ENCOUNTER → 2022-07-09 13:14 | Outpatient (CLI) | payer OTHER, SELFPAY ==
[2022-07-09 15:58] LABS: Urine N gonorrhoeae NOT DETECTED
[2022-07-09 16:32] LABS: Urine Chlamydia NOT DETECTED
[2022-07-10 06:06] LABS: Hepatitis B Core AB w/Reflex Negative (Negative)
[2022-07-10 07:12] LABS: RPR Screen Non Reactive (Non Reactive)
[2022-07-13 16:32] LABS: Hepatitis B Surface Antigen NEGATIVE s/c (NEGATIVE)
[2022-07-13 16:50] LABS: HIV 1 & 2 Ab/Ag 4th Gen Combo NEGATIVE (NEGATIVE); Hep C Virus Ab w/Reflex Quant NEGATIVE s/c (NEGATIVE)
== END ==
PROVIDERS: Family Provider Physician Assistant; PCP Registered Nurse Diabetes Educator; Referring Provider Registered Nurse Diabetes Educator; Visit Provider Registered Nurse Diabetes Educator
DX: Z72.51 High risk heterosexual behavior (principal)
CPT/HCPCS: 36415; 86592; 86704; 86803; 87340; 87389; 87491; 87591